=== PATIENT | male | born 1975 | race Caucasian/White ===

== ENCOUNTER 2017-05-03 00:44 | Emergency (ER) | payer OTHER ==
[~2017-05-03] VITALS: Ht 180.3 cm; Wt 153.0 kg
[~2017-05-03 00:44] MED LIST: HYDR-906 PO; IBUP400T22 PO
[2017-05-03 00:48] VITALS: Ht 180.3 cm; Wt 153.0 kg
[2017-05-03] MEDS ORDERED: CARB15DR50 LEFT EAR (01:06)
[2017-05-03] MEDS ORDERED: LIDOCAINE 2% VISC 15 ML CUP TOP ONE (01:30)
[2017-05-03 01:50] VITALS: BP 118/76; PULSE 109; RESP 19
--- NOTE | 2017-05-04 11:27 | ERD ---
ER Documentation Chief Complaint Date/Time DATE: 05/04/17 TIME: 11:25 Chief Complaint bug flew into R ear 30 mins ago: "feels it moving" HPI This is a 42-year-old male presents to the ER stating that he feels as if his right ear is clogged and thinks a bug flew into his ear. He states initially that he felt it moving. Patient denies any decreased hearing, drainage, tenderness. Denies taking any medications for this ROS All systems reviewed and are negative except as per history of present illness. Medications Home Meds Active Scripts Carbamide Peroxide* (Debrox*) 6.5% - 15 Ml Drops, 10 DROP LEFT EAR BID for 3 Days, BOTTLE Prov:CLOVER SCOTT PA-C 05/03/17 Hydrocodone/Acetaminophen (Sylva 5-325 Tablet) 1 Each Tablet, 1 TAB PO Q6H Y for PAIN, #7 TAB Prov:CLOVER SCOTT PA-C 06/22/16 Ibuprofen* (Motrin*) 400 Mg Tab, 400 MG PO Q6H Y for PAIN AND OR ELEVATED TEMP, #30 TAB Prov:CLOVER SCOTT PA-C 06/22/16 Allergies Allergies: Coded Allergies: No Known Allergy (Unverified , 11/20/14) PMhx/Soc History of Surgery: Yes (PACER PLACEMENT) Anesthesia Reaction: No Hx Neurological Disorder: No Hx Respiratory Disorders: No Hx Cardiac Disorders: Yes (A-FIB) Hx Psychiatric Problems: No Hx Miscellaneous Medical Probl: Yes (STENT ) Hx Alcohol Use: No Hx Substance Use: No Hx Tobacco Use: No Smoking Status: Former smoker Physical Exam Vitals Vital Signs Date Time Temp Pulse Resp B/P Pulse Ox O2 Delivery O2 Flow Rate FiO2 05/03/17 01:50 109 19 118/76 96 Room Air 05/03/17 00:48 97.9 114 16 131/81 97 Physical Exam Const: No acute distress Head:Atraumatic Eyes: Normal Conjunctiva ENT: Normal External Ears, Nose and Mouth. Right tympanic membrane cerumen impaction Neck: Full range of motion. No meningeal signs Resp: Clear to auscultation bilaterally Cardio: Regular rate and rhythm, no murmurs Abd:Soft, non tender, non distended. Normal bowel sounds Skin: No petechiae or rashes Back:No midline or flank tenderness Ext:No cyanosis, or edema Neur:Awake and alert Psych: Normal Mood and Affect Results 24 hrs Current Medications Medications (Trade) Dose Ordered Sig/Genoveva Route PRN Reason Start Time Stop Time Status Last Admin Dose Admin Lidocaine (Xylocaine (Viscous)) 15 ml ONCE ONCE TOP 05/03/17 01:30 05/03/17 01:30 DC Procedures/MDM 42-year-old male presents with chief complaint of having a bug fly into his right ear. On examination there was no evidence of any insects or foreign body. Patient had evidence of a cerumen impaction, the ear was irrigated and is clear. Patient states that his symptoms resolved. He stable to be discharged home with precautions to return emergency department for any worsening sinus symptoms. He understands and agrees with this plan Departure Diagnosis: Primary Impression: Cerumen impaction Condition: Stable Patient Instructions: Cerumen Impaction, Home Care Referrals: MATTHEW COTA MD Additional Instructions: FOLLOW UP WITH YOUR PRIMARY CARE PHYSICIAN TOMORROW.Return to this facility if you are not improving as expected. Take all medicines as directed. Return to this facility if you are not improving as expected. CLOVER SCOTT PA-C May 04, 2017 11:27
== END 2017-05-03 01:50 | disposition home or self-care (01) ==
LOC: FTE 00:44
DX: H61.21 Impacted cerumen, right ear (principal); Z95.0 Presence of cardiac pacemaker; Z98.61 Coronary angioplasty status

== ENCOUNTER 2017-07-13 22:15 | Emergency (ER) | payer SELFPAY ==
[~2017-07-13 22:15] MED LIST changes: +CARB15DR50 LEFT EAR
== END 2017-07-13 22:42 | disposition left against medical advice (07) ==
LOC: E/R 22:15
DX: Z53.21 Procedure and treatment not carried out due to patient leaving prior to being seen by health care provider (principal)

== ENCOUNTER 2017-07-21 05:46 | Emergency (ER) | payer OTHER ==
[~2017-07-21] VITALS: Ht 175.3 cm; Wt 157.0 kg
[2017-07-21 05:48] VITALS: Ht 175.3 cm; Wt 157.0 kg
--- NOTE | 2017-07-21 07:02 | ERD ---
ER Documentation Chief Complaint Chief Complaint pt reports no sleep for 2 days and feelings of anxiety HPI 42-year-old male with history of anxiety, but also acute coronary syndrome, hypertension, hyperlipidemia stent placed, with a pacemaker comes in for symptoms of numbness. He orally and to his left upper extremity for 2 days associated insomnia. The patient reports that ever since his father in 2014 he has had anxiety symptoms and has been seen here with a full workup and was discharged home. This patient has significant cardiac history that took place about a year and a half ago where he had a stent placed with the pacemaker. The patient states that he does not have any chest pain chest, shortness of breath and only reports numbness to his mouth and left upper extremity that has been on and off. He feels anxious at this time, and he feels like his anxiety is returning. His primary care doctor has been prescribing him Xanax but he has chosen not to take it has stopped it about a week or 2 ago. He denies weakness, headaches, dizziness. ROS All systems reviewed and are negative except as per history of present illness. Medications Home Meds Active Scripts Lorazepam* (Ativan*) 0.5 Mg Tablet, 0.5 MG PO Q8, #10 TAB Prov:JOHN CRISTOBAL PA-C 07/21/17 Carbamide Peroxide* (Debrox*) 6.5% - 15 Ml Drops, 10 DROP LEFT EAR BID for 3 Days, BOTTLE Prov:CLOVER SCOTT PA-C 05/03/17 Hydrocodone/Acetaminophen ([place] 5-325 Tablet) 1 Each Tablet, 1 TAB PO Q6H Y for PAIN, #7 TAB Prov:CLOVER SCOTT PA-C 06/22/16 Ibuprofen* (Motrin*) 400 Mg Tab, 400 MG PO Q6H Y for PAIN AND OR ELEVATED TEMP, #30 TAB Prov:CLOVER SCOTT PA-C 06/22/16 Allergies Allergies: Coded Allergies: No Known Allergy (Unverified , 11/20/14) PMhx/Soc History of Surgery: Yes (PACER PLACEMENT) Anesthesia Reaction: No Hx Neurological Disorder: No Hx Respiratory Disorders: No Hx Cardiac Disorders: Yes (A-FIB) Hx Psychiatric Problems: No Hx Miscellaneous Medical Probl: Yes (STENT ) Hx Alcohol Use: No Hx Substance Use: No Hx Tobacco Use: No Smoking Status: Never smoker Physical Exam Vitals Vital Signs Date Time Temp Pulse Resp B/P Pulse Ox O2 Delivery O2 Flow Rate FiO2 07/21/17 05:48 98.3 76 20 165/104 98 Physical Exam General: Well-developed, well-nourished. The patient appears in no acute distress. HEENT: Head is normocephalic, atraumatic. No scleral icterus. Neck: Supple. Nontender. Lungs: Clear to auscultation. Normal air movement. Heart: Regular rate and rhythm. S1 and S2 are normal. No murmurs, gallops, or rubs. Abdomen: Soft, nontender, nondistended. Bowel sounds are normoactive. Extremities: No clubbing or cyanosis. Normal pulses. Moving extremities x 4. No weakness. Neurologic: Alert and oriented 3. No focal deficits. Skin: Normal turgor. No rash or lesions. Result Diagram: 07/21/17 0710 07/21/17 0710 Results 24 hrs Laboratory Tests Test 07/21/17 07:10 White Blood Count 5.910^3/ul Red Blood Count 4.7310^6/ul Hemoglobin 13.4g/dl Hematocrit 39.9% Mean Corpuscular Volume 84.4fl Mean Corpuscular Hemoglobin 28.3pg Mean Corpuscular Hemoglobin Concent 33.6g/dl Red Cell Distribution Width 13.2% Platelet Count 13242^3/UL Mean Platelet Volume 10.7fl Neutrophils % 46.2% Lymphocytes % 39.8% Monocytes % 9.5% Eosinophils % 3.7% Basophils % 0.3% Nucleated Red Blood Cells % 0.0/100WBC Neutrophils # 2.710^3/ul Lymphocytes # 2.410^3/ul Monocytes # 0.610^3/ul Eosinophils # 0.210^3/ul Basophils # 0.010^3/ul Nucleated Red Blood Cells # 0.010^3/ul Sodium Level 142mmol/L Potassium Level 4.3mmol/L Chloride Level 104mmol/L Carbon Dioxide Level 25mmol/L Anion Gap 17 Blood Urea Nitrogen 12mg/dl Creatinine 0.76mg/dl Glucose Level 95mg/dl Calcium Level 9.2mg/dl Troponin I < 0.012ng/ml Current Medications Medications (Trade) Dose Ordered Sig/Genoveva Route PRN Reason Start Time Stop Time Status Last Admin Dose Admin Lorazepam (Ativan) 1 mg ONCE ONCE PO 07/21/17 08:30 07/21/17 08:31 DC 12-lead EKG(interpreted by supervising physician): Dr. Thompson Rate/Rhythm: V paced with a rate of 68, left bundle branch block seen. Discordant ST segment changes in lateral leads. QRS, ST, T-waves: No changes consistent w/ acute ischemia, no intervals, no dysrhythmias, no ectopy Impression: No evidence of ischemia or arrhythmia Procedures/MDM Medical decision making: This 42-year-old male with a history of stent, acute coronary syndrome, obesity, hypertension, hyperlipidemia has a history of anxiety and comes in with paresthesias to his mouth as well as the left upper extremity. Given his significant cardiac history workup was initiated. EKG shows discordant ST changes, there is no significant ST elevation, this is likely from the left bundle branch block. This certainly there are no ST segment depressions to indicate ACS. I believe that the patient can safely be discharged, with one negative troponin. His labs are unremarkable today, troponin was less than 0.012. He was asking for medication to treat anxiety acutely in the emergency department he was given Ativan and his will be driving him home. I will give him a couple days worth of Ativan at this time which she can take as needed for anxiety, and if he needs further medication or refill the patient was instructed that he is to follow-up with his PCP. The case was reviewed and discussed with Dr. Thompson who agrees with the plan of care including labs, treatment, and advanced imaging as appropriate. Patient's blood pressure was elevated (>120/80) but appears stable without evidence of hypertension emergency or urgency. The patient was counseled about the risks of hypertension and urged to pursue outpatient monitoring and therapy within a week with their primary care physician. Departure Diagnosis: Primary Impression: Anxiety Condition: JOHN Shanks PA-C Jul 21, 2017 07:02
[2017-07-21 07:38] LABS: BASOPHILS % 0.3 % (0.0-2.0); EOSINOPHILS # 0.2 10^3/ul (0.0-0.5); EOSINOPHILS % 3.7 % (0.0-7.0); HEMATOCRIT 39.9 % (42.0-52.0); HEMOGLOBIN 13.4 g/dl (14.0-18.0); LYMPHOCYTES # 2.4 10^3/ul (0.8-2.9); LYMPHOCYTES % 39.8 % (15.0-51.0); MEAN CORPUSCULAR HEMOGLOBIN 28.3 pg (29.0-33.0); MEAN CORPUSCULAR HGB CONC 33.6 g/dl (32.0-37.0); MEAN CORPUSCULAR VOLUME 84.4 fl (82.0-101.0); MEAN PLATELET VOLUME 10.7 fl (7.4-10.4); MONOCYTE # 0.6 10^3/ul (0.3-0.9); MONOCYTES % 9.5 % (0.0-11.0); NEUTROPHIL # 2.7 10^3/ul (1.6-7.5); NEUTROPHILS % 46.2 % (39.0-77.0); PLATELET COUNT 211 10^3/UL (140-415); RED BLOOD COUNT 4.73 10^6/ul (4.70-6.10); RED CELL DISTRIBUTION WIDTH 13.2 % (11.5-14.5); WHITE BLOOD COUNT 5.9 10^3/ul (4.8-10.8)
[2017-07-21 08:05] LABS: ANION GAP 17 (8-16); BLOOD UREA NITROGEN 12 mg/dl (7-20); CALCIUM 9.2 mg/dl (8.4-10.2); CARBON DIOXIDE 25 mmol/L (21-31); CHLORIDE 104 mmol/L (97-110); CREATININE 0.76 mg/dl (0.61-1.24); GLUCOSE 95 mg/dl (70-220); POTASSIUM 4.3 mmol/L (3.5-5.1); SODIUM 142 mmol/L (135-144)
[2017-07-21 08:20] LABS: TROPONIN-I < 0.012 ng/ml (0.00-0.12)
[2017-07-21] MEDS ORDERED: LORAZEPAM 1 MG TAB PO ONE (08:30)
[2017-07-21] MEDS ORDERED: LORA-441 PO (08:31)
[2017-07-21 09:10] VITALS: BP 156/96; PULSE 78; RESP 20; TEMP 98.3
== END 2017-07-21 09:10 | disposition home or self-care (01) ==
LOC: FTE 05:46
DX: F41.9 Anxiety disorder, unspecified (principal); I25.10 Atherosclerotic heart disease of native coronary artery without angina pectoris; I10 Essential (primary) hypertension; Z95.0 Presence of cardiac pacemaker; Z98.61 Coronary angioplasty status
CPT/HCPCS: 36415; 80048; 84484; 85025; 93005